=== PATIENT | female | born 1970 | race Caucasian/White ===

== ENCOUNTER 2022-04-08 07:21 | Outpatient (RCR) | payer BC, SELFPAY | END 2022-06-02 16:00 | disposition home or self-care (01) | PROVIDERS: Visit Provider Physician Assistant Medical | DX: M72.2 Plantar fascial fibromatosis (principal); Z51.89 Encounter for other specified aftercare | CPT/HCPCS: 97161; 97760; 97763 ==

== ENCOUNTER 2023-02-25 08:01 | Outpatient (CLI) | payer BC, SELFPAY | END 2023-02-25 08:02 | disposition home or self-care (01) | LOC: NFLDREF 02-26 06:30 | PROVIDERS: PCP Physician Assistant Medical; Referring Provider Physician Assistant Medical; Visit Provider Physician Assistant Medical | DX: I10 Essential (primary) hypertension (principal) | CPT/HCPCS: 80048 ==

== ENCOUNTER 2023-04-16 07:01 | Outpatient (CLI) | payer BC, SELFPAY ==
--- NOTE | 2023-04-16 07:15 | CRLHL7_ITS ---
For Patients: As a result of the Century Cures Act, medical imaging exams and procedure reports are released immediately into your electronic medical record. You may view this report before your referring provider. If you have questions, please contact your health care provider. INDICATION: Follow-up fibroids COMPARISON: 12/18/2022 TECHNIQUE: 2D patterson scale and color Doppler images were acquired of the pelvis using a transabdominal approach. FINDINGS: Uterus is enlarged with a lobular contour. Uterus measures 18.2 cm in length by 7.2 cm in AP diameter by 10.8 cm in transverse dimension. The myometrium has a heterogeneous echotexture. The endometrial lining measures 7 mm in composite thickness. The ovaries are not visualized. There are no suspicious fluid collections within the cul-de-sac. Fundal fibroid again noted measuring 6.8 x 4.5 x 5.9 cm, previously measuring 6.9 x 5.4 x 6.1 cm. Right-sided uterine fibroid measures 6.0 x 4.7 x 6.5 cm, previously measuring 6.0 x 5.8 x 6.5 cm. Left-sided uterine fibroid measures 8.7 x 5.5 x 7.5 cm, previously measuring 8.5 x 8.0 x 10.1 cm. IMPRESSION: Multiple uterine fibroids, similar to the prior study. Dictated by Viraj Crowe MD @ 04/16/2023 3:59:31 PM (Electronically Signed)
== END 2023-04-16 07:02 | disposition home or self-care (01) ==
LOC: US 07:02
PROVIDERS: PCP Physician Assistant Medical; Visit Provider Obstetrics & Gynecology
DX: D25.9 Leiomyoma of uterus, unspecified (principal)
CPT/HCPCS: 76856

== ENCOUNTER 2023-11-17 07:04 | Outpatient (CLI) | payer BC, SELFPAY ==
--- OUTSIDE RECORDS SUMMARY | 2023-11-17 07:06 | XMS_ITS | Clinical Summary ---
Author Name Unknown Organization [facility] Address [place], [place] [address] Care Team Providers Care Space Officer Name Role Phone Jessie Vela PA-C Primary Care Provider + [phone] Encounters Date Type Department Care Team Description 08/26/2023 Lab Requisition [facility] [phone] Moe Campbell MD from Last 3 Months Social History Tobacco Use Types Packs/Day Years Used Date Smoking Tobacco: Never Assessed Sex and Gender Information Value Date Recorded Sex Assigned at Not on file Gender Identity Not on file Sexual Orientation Not on file Plan of Treatment Health Maintenance Due Date Last Done Comments Tdap 1983 Depression screening for age 12+ 1984 HIV for age 15-65 1987 BMI (ht and wt on same day) for age 18+ 1990 Hepatitis C screening for age 18-79 1990 Tetanus booster 1992 Colonoscopy through age 75 2017 Lipids for age 45-75 2017 Mammogram for age 45-75 2017 Zoster (shingles) series for age 50+ (1 of 2) 2022 COVID-19 vaccine series (2022- season) 2023 11/02/2020, 10/12/2020 Pap test for age 21-65 11/07/2023 , 11/06/2020, 08/18/2017, Additional history exists Influenza for age 50-64 03/19/2024 Pneumococcal series for age 6-64 Aged Out No longer eligible based on patient's age to complete this topic Procedures Procedure Name Priority Date/Time Associated Diagnosis Comments LAB TRACKING EVENT Routine 08/26/2023 9: 45 AM TRUMPET PLAYER PATH TISSUE EXAM Routine 08/26/2023 9:45 AM TRUMPET PLAYER PROCESS IMPROVEMENT SPECIALIST THIN PREP PAP SCREEN IMAGED Routine 11/06/2020 9:00 AM CDT from Last 3 Months or Most Recently Relevant to Health Maintenance Results * LAB TRACKING EVENT (08/26/2023 9:45 AM TRUMPET PLAYER) Other (Other) Client Collect / Unknown 08/26/2023 9:45 AM TRUMPET PLAYER 08/26/2023 3:21 PM TRUMPET PLAYER Moe Campbell MD LAB BILL ONLY [facility] [address] * PATH TISSUE EXAM (08/26/2023 9:45 AM TRUMPET PLAYER) Case Report Pathology Report ?Case: [id number] ? Authorizing Provider: ??Moe Campebll MD ?? Collected: ? 08/26/2023 0945 ? Ordering Location: ? [facility] ?Received: ?08/26/2023 1646 ? Pathologist: ? Esther Guy MD ? Specimen: ?Back ? 08/30/2023 5:01 PM [facility] [employer] [facility] Final Diagnosis A) SKIN, LOWER BACK, BIOPSY: 1. Lentiginous compound nevus with moderate cytologic atypia ?? a. Margin status: Negative, but less than 1 mm in the plane of section examined 2. Negative for malignancy 08/30/2023 5:01 PM [facility] Comment A) Incomplete sampling of melanocytic proliferations may impair accurate diagnosis. Clinical correlation with the overall size of the lesion, and presence of remaining or recurring pigment, is required for optimal treatment. 08/30/2023 5:01 PM [facility] [employer] [facility] Clinical Information Atypical nevus 08/30/2023 5:[address] [facility] Gross Description A) Received in formalin, labeled with the patient's name and lower back, is a 0.7 x 0.4 x 0.1 cm skin biopsy. There is a 0.2 x 0.2 cm flat brown-black ??lesion. The specimen is inked yellow, trisected and entirely submitted in one cassette. EKW 08/26/2023 08/30/2023 5:[address] [facility] Microscopic Description The final diagnosis is based on microscopic examination of appropriate sections of all specimens. Additional deeper level sections are examined. 08/30/2023 5:01 PM [facility] Additional Information Interpreted at [facility] Central Laboratory - [address] [facility] [address] [address] 08/30/2023 5:01 PM [facility] Other (Back) 08/26/2023 9:45 AM TRUMPET PLAYER 08/26/2023 4:46 PM TRUMPET PLAYER Moe Campbell MD PATHOLOGY/CYTOLOG Y [facility] [address] [place] [address], * PROCESS IMPROVEMENT SPECIALIST THIN PREP PAP SCREEN IMAGED (11/06/2020 9:00 AM CDT) Case Report Gynecologic Cytology Report ? Case: [id number] ? Authorizing Provider: ??Jessie Vela PA-C ?Collected: ? 11/06/2020 0900 ? Ordering Location: ? [facility] ?Received: ?11/07/2020 1507 ? First Screen: ?Zahira Rivas ? Specimen: ?PROCESS IMPROVEMENT SPECIALIST ThinPrep Vial Screening, Cervical/Vaginal ? 11/14/2020 12:00 PM CDT [employer] [facility]-C ENTRAL LABORATORY INTERPRETATION/ RESULT NEGATIVE FOR INTRAEPITHELIAL LESION OR MALIGNANCY (NIL) (none) 11/14/2020 12:00 PM CDT [facility] [employer] LAB[facility]AT[facility] ENTRAL LABORATORY IMEN ADEQUACY Satisfactory for evaluation No endocervical component seen 11/14/2020 12:00 PM CDT [facility] HPV REQUEST HPV and PAP 11/14/2020 12:00 PM CDT [facility] Date of LMP 10/19/2020 11/14/2020 12:00 PM CDT [facility] Last Pap Date 08/18/2017 11/14/2020 12:00 PM CDT [facility] Last Pap Result NIL 12:00 PM CDT [facility] Additional Information 11/14/2020 12:00 PM CDT [facility] Comment: Interpreted at [facility] - [address], [place] [address] Automated Review Successful 11/14/2020 12:00 PM T [facility] Comment:Specimen processed s uccessfully by automated applications tester device, ThinPrep Imaging System, [employer] ANCILLARY TESTING PROCESS IMPROVEMENT SPECIALIST HPV Ordered, Please see separate report 11/14/2020 12:00 PM T [facility] Note The pap test is a screening technique, not a diagnostic procedure. It is used primarily to screen for squamous cancers and precursor lesions. Published studies have shown that it is subject to both false negative and false positive results. The pap test should not be used as the sole means to diagnose or exclude pre-malignant and malignant lesions. 11/14/2020 12:00 PM CDT [facility] Other (Cervical/Vagina l) 11/06/2020 9:00 AM CDT 11/07/2020 3:07 PM CDT Jessie Vela PA-C PATHOLOGY/CYTOLOGY [facility] [address] [place] [address], [place] from Last 3 Months or Most Recently Relevant to Health Maintenance Care Teams Space Officer Relationship Specialty Start Date End Date Jessie Vela PA-C [address] [place] [address] PCP - General Emergency Medicine 01/18/23
--- OUTSIDE RECORDS SUMMARY | 2023-11-17 07:06 | XMS_ITS | Data Portability ---
Author Name Unknown Address [address] [place] [address] Phone [phone] Organization [facility] D[facility], Main Office Address [address] [place] [address] Assessment Encounter Date Assessment Date Assessment LastModified by Organization Details LastModified Time 12/26/2018 12/26/2018 1. Basal carcino ma biopsy-proven tip of nose just to the right of midline. We discussed risks benefits of surgery. This is a difficult area to reconstruct and often requires revision or resurfacing. We discussed the difficulty of doing an elliptical linear closure due to being at the apex of the convexity the tip of the nose. Grafts can be performed. Flaps can be performed. We discussed pain, discomfort, chance of scarring, infections. Mohs case M 19? 040 Stage I: Area cleansed with Betadine, then alcohol. Anesthetized 1% lidocaine with epinephrine. Less than 6 cc total today. Marcaine 0.25 cc was used in between layers. Curette debulking gently. Half a millimeter margins were taken to the mid dermis on stage I revealing an interesting inflammatory involvement of 4 to 5 and 6:00 deep in the dermis. Stage II: Deeper layer throughout the dermis was taken circumferentially within the defect without epidermis revealing the same inflammatory response with some isolated basaloid cells. Stage III. Similar deep area was taken down to the subcutis on the skin on the tip of the nose revealing no inflammation or isolated unusual cells. Final defect 0.6 x 0.7 cm. Total stages 3. Total sections 3. We chose to perform an island pedicle advancement flap inferior base. We diagrammed this out preoperatively and discussed that at this point. An island was released laterally inferior to the defect advanced forward with a solid underlying vascular supply closed with 5-0 Vicryl and 5-0 nylon. Final defect size 0.6 x 0.6 cm plus a secondary defect. The primary and secondary defect combined were approximately 1 cm??. Pressure dressing applied, wound care instructions given. Cell phone number available. Follow-up in 1 week in [place] with mt in 2 to 3 weeks Not available 12/31/2018 11:24:15 Plan of Treatment Reminders Order Date Submit Date Provider Last Modified By Organization Details Last Modified Time Details Appointments None record ed. Lab None record ed. Referral None record ed. Procedures None record ed. Surgeries None record ed. Imaging None record ed. Medication Orders None record ed. Patient TargetsNo targets recorded. Patient InstructionsNo instructions recorded. Reason for Referral None Reported. Problems Name Status Onset Date Resolution Date Notes Provider Name and Address Organization Details Recorded Time [facility]al [facility] 09:58:52 Essential hypertension [facility] 12/26/2018 09:59:32 Problem Notes None recorded. Procedures Surgical History Date Name Laterality Status Provider Name and Address Organization Details Recorded Time Removal of ovarian cyst(s) completed [facility] 12/26/2018 10:03:33 Imaging Results None recorded. Procedure Notes None recorded. Medical Equipment None Reported. Allergies No known drug allergies Medications Name Sig Start Date Stop Date Status Note LastModified by Organization Details LastModified Time Keflex 500 mg capsule Take 1 capsule twice a day by oral route. 2018 active Not Available Not Available Not Avai lable metronidazo le 0.75 % lotion 12/26 completed Not Available Not Available Not Available mupirocin 2 % topical ointment APPLY A SMALL AMOUNT TO THE AFFECTED AREA BY TOPICAL ROUTE 3 TIMES PER DAY x 2 weeks 2018 active Not Available Not Available Not Avai lable ketoconazol e 2 % topical cream 12/26 completed Not Available Not Available Not Available Fish Oil active Not Available Not Avai lable Not Available hydrochloro thiazide 12.5 mg tablet active Not Available Not Available Not Available Vitals None Recorded Social History Question Answer Notes LastModified by Organizat ion Details LastModified Time Tobacco Smoking Status Never Smoker Not Available [facility] 05/21/2020 03:34:37 What Is Your Level Of Alcohol Consumption? Occasional [id number] Information not available 05/21/2020 Animal Exposure? Yes Dog, Cat Informat ion not available 12/26/2018 What Was The Date Of Your Most Recent Tobacco Screening? 12/26/2018 [id number] Information not available 05/21/2020 What Is Your Relationship Status? [id number] Information not available 05/21/2020 Sun Exposure Moderate Information not available 12/26/2018 Do You Use Sunscreen Routinely? Yes [id number] Information not available 05/21/2020 Tanning Bed Exposure Yes Information not available 12/26/2018 Sex: Female Functional Status None recorded. Mental Status None recorded. Family History Relationship Description Onset Age of this Age Resolved Age Notes Father Jygjy-Jylkajcas-Djdj e pattern Mother Myocardial infarction Medical History Condition Response Diabetes N Bleeding Disorder N Squamous Cell Carcinoma N Arthritis N Blood Clot N Tuberculosis N AIDS/HIV N Cancer N Melanoma N Stroke N Thyroid Problems N Asthma N Pacemaker N Anemia N Basal Cell Carcinoma Y Skin Cancer Y Hepatitis N Liver Disease N Heart Disease N Pulmonary Embolism N Hypertension Y Seasonal Allergies N Kidney Disease N Gynecological HistoryNo gynecological history recorded. 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 [id number] Health Concerns Section Related Observation LastModified by Organization Detai ls LastModified Time None Recorded Concern Status LastModified by Organization Details LastModified Time None Recorded Advance Directives Directive None Recorded Payers Encounter Date Sequence Insurance Name Policy Number Policy Horner Covered Member ID Horner Member ID Guarantor Name 12/26/2018 1 [place] [employer] Pro Valverde [id number] Chey Valverde Notes Date Note Type Note Provider Name and Address Organization Details Recorded Time 12/26/2018 text/html HPI Notes: 48-year-old female presents today for Mohs surgery of basal carcinoma just right of the midline of the tip of the nose see preoperative photographs. She is accompanied by her . She understands the risks including pain discomfort downtime scarring chance of infection. She is known to me from the [facility] Moe Campbell MD [address] [address], [place], [address], [facility] 12/31/2018 11:24:23 OBGyn Episode No OBEpisode recorded.
--- NOTE | 2023-11-17 07:15 | US_ITS ---
Patient: CAMILLA BARTON Facility:?[facility] Patient ID:?[id number] Site Patient ID:?[id number]. Site :?1970 Study:?US-OB Pelvis TA/TV Pelvic US-11/17/2023 8:13:37 AM Ordering Physician:Cielo Guzman Final Report: INDICATION: Leiomyoma COMPARISON: 04/16/2023 TECHNIQUE: 2D patterson scale and color Doppler images were acquired of the pelvis using a transabdominal and transvaginal approach. FINDINGS: Partially exophytic fundal fibroid is present measuring 5.7 x 4.8 x 5.2 cm, previously measuring 6.8 x 4.5 x 5.9 cm. Left partially exophytic fibroid also noted measuring 7.5 x 5.3 x 6.7 cm, previously measuring 8.7 x 5.5 x 7.5 cm. Right-sided fibroid measures 5.4 x 4.2 x 5.5 cm, previously measuring 6.0 x 4.7 x 6.5 cm. Uterus measures 10.6 cm in length by 7.2 cm in AP diameter by 9.5 cm in transverse dimension. The myometrium has a normal uniform echotexture. The endometrial lining appears normal and measures 9 mm in composite thickness. The right ovary measures 2.4 x 1.3 x 1.2 cm in size and the left ovary measures 2.2 x 1.4 x 1.9 cm. The ovaries demonstrate normal arterial and venous blood flow on color Doppler analysis. There are no suspicious fluid collections within the cul-de-sac. IMPRESSION: Multiple uterine fibroids measuring up to 7.5 cm, similar to the prior study. Dictated by Viraj Crowe MD @ 11/17/2023 12:39:55 PM Signed by:?Viraj Crowe MD @11/17/2023 12:39:55 PM (Electronic Signature)
== END 2023-11-17 07:05 | disposition home or self-care (01) ==
PROVIDERS: PCP Physician Assistant Medical; Visit Provider Obstetrics & Gynecology
DX: D25.9 Leiomyoma of uterus, unspecified (principal)
CPT/HCPCS: 76830; 76856

== ENCOUNTER 2023-12-06 12:44 | Outpatient (CLI) | payer BC, SELFPAY ==
--- OUTSIDE RECORDS SUMMARY | 2023-12-06 12:48 | XMS_ITS | Data Portability ---
Author Name Unknown Address [address] [place] [address] Phone [phone] Organization [facility] Derm [facility]ology, Main Office Address [address] [place] [address] Assessment Encounter Date Assessment Date Assessment LastModified [...] number available. Follow-up in 1 week in [place] with [place] in 2 to 3 weeks Not available [...] cell carcinoma [facility] 09:58:52 Essential hypertension [facility] 12/26/2018 09:59:32 Problem Notes None recorded. Procedures Surgical History Date Name Laterality Status Provider Name and Address Organization Details Recorded Time Removal of ovarian cyst(s) completed [facility] 12/26/2018 10:03:33 Imaging Results None recorded. Procedure [...] Is Your Level Of Alcohol Consumption? Occasional [id number] Information not available 05/21/2020 Animal Exposure? Yes Dog, Cat Informat ion not available 12/26/2018 What Was The Date Of Your Most Recent Tobacco Screening? 12/26/2018 [id number] Information not available 05/21/2020 What Is Your Relationship Status? [id number] Information not available 05/21/2020 Sun Exposure Moderate Information not available 12/26/2018 Do You Use Sunscreen Routinely? Yes [id number] Information not available 05/21/2020 Tanning Bed Exposure Yes Information not available 12/26/2018 Sex: Female Functional Status None recorded. Mental Status None recorded. Family History Relationship Description Onset Age of this Age Resolved Age Notes Father Vdymq-Iwwbkzsbp-Lujb e pattern Mother Myocardial infarction Medical History [...] 1908 Moe Campbell MD Main Office [address],[place] [address] 12/26/2018 09:49:30 12/31/2018 11:24:35 Basal cell carcinoma of tip of nose [id number] Health Concerns Section Related Observation LastModified by Organization Detai ls LastModified Time None Recorded Concern Status LastModified by Organization Details LastModified Time None Recorded Advance Directives Directive None Recorded Payers Encounter Date Sequence Insurance Name Policy Number Policy Horner Covered Member ID Horner Member ID Guarantor Name 12/26/2018 1 [place] Pro Valverde [id number] Chey Valverde Notes Date Note Type Note [...] She is known to me from the [facility] Moe Campbell MD [address],[facility] [address], [place], [address], [facility] 12/31/2018 11:24:23 OBGyn Episode No OBEpisode recorded.
--- OUTSIDE RECORDS SUMMARY | 2023-12-06 12:48 | XMS_ITS | Clinical Summary ---
Author Name Unknown Organization [facility] Address [place], [place] [address] Care Team Providers Care Driver Operator Name Role Phone Jessie Vela PA-C Primary Care Provider + [phone] Social History Tobacco Use Types Packs/Day Years [...] Procedure Name Priority Date/Time Associated Diagnosis Comments SUPERVISOR WINTER THIN PREP PAP SCREEN IMAGED Routine 11/06/2020 9:00 AM CDT from Last 3 Months or Most Recently Relevant to Health Maintenance Results * SUPERVISOR WINTER THIN PREP PAP SCREEN IMAGED (11/06/2020 9:00 AM CDT) Case Report Gynecologic Cytology Report ? Case: [id number] ? Authorizing Provider: ??Jessie Vela PA-C ?Collected: ? 11/06/2020 0900 ? Ordering Location: ? [facility] ?Received: ?11/07/2020 1507 ? First Screen: ?Zahira Rivas ? Specimen: ?SUPERVISOR WINTER ThinPrep Vial Screening, Cervical/Vaginal ? 11/14/2020 12:00 PM CDT [facility] INTERPRETATION/ RESULT NEGATIVE FOR INTRAEPITHELIAL LESION OR MALIGNANCY (NIL) (none) 11/14/2020 12:00 PM CDT [facility] IMEN ADEQUACY Satisfactory for evaluation No endocervical component seen 11/14/2020 12:00 PM CDT [facility] HPV REQUEST HPV and PAP 11/14/2020 12:00 PM CDT [facility] Date of LMP 10/19/2020 11/14/2020 12:00 PM CDT [facility] Last Pap Date 08/18/2017 11/14/2020 12:00 PM CDT [facility] Last Pap Result NIL 12:00 PM CDT [facility] Additional Information 11/14/2020 12:00 PM T [facility] Comment: Interpreted at [facility] - [address], [place] [address] Automated Review Successful 11/14/2020 12:00 PM T [facility] Comment:Specimen processed s uccessfully by automated caddy/caddie supervisor device, TruLeafPrep Imaging System, [employer] ANCILLARY TESTING SUPERVISOR WINTER HPV Ordered, Please see separate report 11/14/2020 12:00 PM T [facility] Note The pap test is a screening technique, not a diagnostic procedure. It is used primarily to screen for squamous cancers and precursor lesions. Published studies have shown that it is subject to both false negative and false positive results. The pap test should not be used as the sole means to diagnose or exclude pre-malignant and malignant lesions. 11/14/2020 12:00 PM T [facility] Other (Cervical/Vagina l) 11/06/2020 9:00 AM CDT 11/07/2020 3:07 PM CDT Jessie Vela PA-C PATHOLOGY/CYTOLOGY [facility] [address] [place] [address], [place] from Last 3 Months or Most Recently Relevant to Health Maintenance Care Teams Driver Operator Relationship Specialty Start Date End Date Jessie Vela PA-C [address] [place] [address] PCP - General Emergency Medicine 01/18/23
--- NOTE | 2023-12-06 13:20 | MM_ITS ---
Patient: CAMILLA BARTON Facility:?[facility] Patient ID:?[id number] Site Patient ID:?[id number]. Site :?1970 Study:?XRay-Breast Bilateral 3D W/CAD-12/06/2023 1:20:34 PM Ordering Physician:Christine Final Report: BILATERAL SCREENING MAMMOGRAM WITH COMPUTER-AIDED DETECTION AND TOMOSYNTHESIS TECHNIQUE: CC and MLO views were obtained. These mammographic images have been obtained using full-field digital technique. These mammographic images were interpreted with the benefit of computer-aided detection. Breast Tomosynthesis was used in this interpretation. COMPARISON FILM: 12/02/22, 11/06/21, 09/18/20. FINDINGS: There are scattered areas of fibroglandular density IMPRESSION: There is no radiographic evidence for malignancy. ASSESSMENT: BI-RADS Category 2: Benign RECOMMENDATION: Routine screening mammogram in 1 year. A lay language report of this examination will be provided to the patient. Viraj Crowe M.D. Diagnostic Radiologist [email or web address] Transcribed: 2:12 p.mSarah ebal/Dictated by: Viraj Crowe MD @ 12/07/2023 1:36:00 PM Signed by:?Viraj Crowe MD @12/07/2023 2:17:58 PM (Electronic Signature)
== END 2023-12-06 12:45 | disposition home or self-care (01) ==
LOC: MAMMO 12:44
PROVIDERS: PCP Physician Assistant Medical; Visit Provider Physician Assistant Medical
DX: Z12.31 Encounter for screening mammogram for malignant neoplasm of breast (principal)
CPT/HCPCS: 77063; 77067

== ENCOUNTER 2024-02-03 09:07 | Outpatient (CLI) | payer BC, SELFPAY ==
--- OUTSIDE RECORDS SUMMARY | 2024-02-03 09:10 | XMS_ITS | Clinical Summary ---
Author Organization [facility] Address [place], [place] [address] Care Team Providers Care Centralized Traffic Control Operator Name Role Phone Jessie Vela PA-C Primary Care Provider + [phone] Social History Tobacco Use Types Packs/Day Years [...] (1 of 2) 2022 COVID-19 vaccine series ( season) 2023 11/02/2020, 10/12/2020 Pap test for age 21-65 11/07/2023 , 11/06/2020, 08/18/2017, Additional history exists Influenza for age 50-64 03/19/2024 Pneumococcal series for age 6-64 Aged Out No longer eligible based on patient's age to complete this topic Procedures Procedure Name Priority Date/Time Associated Diagnosis Comments CARD SERVICES SPECIALIST THIN PREP PAP SCREEN IMAGED Routine 11/06/2020 9:00 AM CDT from Last 3 Months or Most Recently Relevant to Health Maintenance Results * CARD SERVICES SPECIALIST THIN PREP PAP SCREEN IMAGED (11/06/2020 9:00 AM CDT) Case Report Gynecologic Cytology Report ? Case: [id number] ? Authorizing Provider: ??Jessie Vela PA-C ?Collected: ? 11/06/2020 0900 ? Ordering Location: ? [facility] ?Received: ?11/07/2020 1507 ? First Screen: ?Zahira Rivas ? Specimen: ?CARD SERVICES SPECIALIST ThinPrep Vial Screening, Cervical/Vaginal ? 11/14/2020 12:00 PM CDT [facility] INTERPRETATION/ RESULT NEGATIVE FOR INTRAEPITHELIAL LESION OR MALIGNANCY (NIL) (none) 11/14/2020 12:00 PM CDT [facility] IMEN ADEQUACY Satisfactory for evaluation No endocervical component seen 11/14/2020 12:00 PM CDT [facility] HPV REQUEST HPV and PAP 11/14/2020 12:00 PM CDT [facility] Date of LMP 10/19/2020 11/14/2020 12:00 PM [facility] Last Pap Date 08/18/2017 11/14/2020 12:00 PM T [facility] Last Pap Result NIL 12:00 PM T [facility] Additional Information 11/14/2020 12:00 PM T [facility] Comment: Interpreted at [facility] - [address], [place] [address] Automated Review Successful 11/14/2020 12:00 PM [facility] Comment:Specimen processed s uccessfully by automated fiberglass fabricator device, [employer] System, [employer] ANCILLARY TESTING CARD SERVICES SPECIALIST HPV Ordered, Please see separate report 11/14/2020 12:00 PM T [facility] Note The pap test is a [...] and malignant lesions. 11/14/2020 12:00 PM T [facility] Other (Cervical/Vagina l) 11/06/2020 9:00 AM CDT 11/07/2020 3:07 PM CDT Jessie Vela PA-C PATHOLOGY/CYTOLOGY [facility] [address] [place] [address], [place] from Last 3 Months or Most Recently Relevant to Health Maintenance Care Teams Centralized Traffic Control Operator Relationship Specialty Start Date End Date Jessie Vela PA-C [address] [place] [address] PCP - General Emergency Medicine 01/18/23
[2024-02-03 15:20] LABS: Chlamydia DNA Amplified* NOT DETECTED (No Detected); GC DNA Amplified* NOT DETECTED (No Detected)
== END 2024-02-03 09:08 | disposition home or self-care (01) ==
PROVIDERS: PCP Physician Assistant Medical; Visit Provider Physician Assistant Medical
DX: I10 Essential (primary) hypertension (principal); Z11.3 Encounter for screening for infections with a predominantly sexual mode of transmission; Z13.220 Encounter for screening for lipoid disorders
CPT/HCPCS: 80053; 80061; 86703; 86803; 87491; 87591

== ENCOUNTER 2025-01-09 09:47 | Outpatient (CLI) | payer OTHER, SELFPAY ==
--- NOTE | 2025-01-09 10:15 | CRLHL7_ITS ---
For Patients: As a result of the Cures Act, medical imaging exams and procedure reports are released immediately into your electronic medical record. You may view this report before your referring provider. If you have questions, please contact your health care provider. COMPARISON: 12/06/2023, 12/02/2022, 11/06/2021 TECHNIQUE: Digital mammogram in CC and MLO projections including computer-aided detection (CAD) and tomosynthesis. BREAST COMPOSITION: There are scattered areas of fibroglandular density. FINDINGS: No suspicious findings. ASSESSMENT: BI-RADS 2 Benign RECOMMENDATION: Annual screening mammogram. A lay language report of this examination will be provided to the patient. Dictated by: Viraj Crowe MD @ 01/09/2025 12:37:41 (Electronically Signed)
--- OUTSIDE RECORDS SUMMARY | 2025-01-10 00:50 | XMS_ITS | Clinical Summary ---
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 Gender Identity Not on file Sexual Orientation Not on file Plan of Treatment Health Maintenance Due Date Last Done Comments Tdap 1983 Depression screening for age 12+ 1984 HIV for age 15-65 1987 BMI (ht and wt on same day) for age 18+ 1990 Hepatitis C screening for ag e 18-79 1990 Hepatitis B series for 19+ ( 1 of 3 - 19+ 3-dose series) 1991 Tetanus booster 1992 Colonoscopy through age 75 2017 Lipids for age 45-75 2017 Mammogram for age 45-75 2017 Pneumococcal series for age 50+ (1 of 1 - PCV) 2022 Zoster (shingles) series for age 50+ (1 of 2) 2022 COVID-19 vaccine series (3 - 2023- season) 2024 11/02/2020, 10/12/2020 Influenza Vaccine (Season Ended) 2025 Pap test for age 21-65 02/02/2027 , 02/03/2024, 11/06/2020, Additional history exists Procedures Procedure Name Priority Date/Time Associated Diagnosis Comments HPV HIGH RISK Routine 02/03/2024 9:15 AM CDT from Last 3 Months or Most Recently Relevant to Health Maintenance Results * HPV HIGH RISK (02/03/2024 9:15 AM CDT) TYPE 16 Negative Negative 02/09/2024 12:29 PM CDT [facility] TYPE 18 Negative Negative 02/09/2024 12:29 PM CDT [facility] OTHER HIGH RISK TYPES Negative Negative 02/09/2024 12:29 PM CDT [facility] Other (Cervical/Vagina l) 02/03/2024 9:15 AM CDT 02/07/2024 11:45 AM CDT Narrative [facility] - 02/09/2024 12:29 PM CDT HPV types 16, 18, 31, 33, 35, 39, 45, 51, 52, 56, 58, 59, 66 and 68 DNA were undetectable or below the pre-set threshold. 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
--- OUTSIDE RECORDS SUMMARY | 2025-01-10 00:50 | XMS_ITS | Data Portability ---
Author Organization [place] [facility], Main Office Address [address] [place] [address] [place] [address] Assessment Encounter Date Assessment Date Assessment LastModified [...] chance of scarring, infections. Mohs case M 19 040 Stage I: Area cleansed with Betadine, [...] and secondary defect combined were approximately 1 cm . Pressure dressing applied, wound care instructions given. Cell phone number available. Follow-up in 1 week in [place] with [place] in 2 to 3 weeks Not available [...] Reason for Referral None Reported. Problems Name Problem SNOMED Code Status Onset Date Resolution Date Notes Provider Name and Address Organization Details Recorded Time Basal cell carcinoma of skin 109128815 Active 2018 rosina johnson [facility] 9 09:58:52 Essential hypertension [id number] Active 2018 rosina johnson [facility] 9 09:59:32 Problem Notes None recorded. Procedures Surgical History Date Name Laterality Status Provider Name and Address Organization Details Recorded Time Removal of ovarian cyst(s) completed rosina gannon [facility] 12/26/2018 10:03:33 Imaging Results None recorded. Procedure [...] Tobacco Smoking Status Never [facility]oker Not [facility] 05/21/2020 03:34:37 Animal Exposure? Yes Dog, Cat Informat ion not available 12/26/2018 What Was The Date Of Your Most Recent Tobacco Screening? 12/26/2018 [id number] Information not available 05/21/2020 What Is Your Relationship Status? [id number] Information not available 05/21/2020 Sun Exposure Moderate Information not available 12/26/2018 Do You Use Sunscreen Routinely? Yes [id number] Information not available 05/21/2020 Tanning Bed Exposure Yes Information not available 12/26/2018 Sex: Unknown Functional Status Question Answer Note LastModified by Organizat ion Details LastModified Time What is your level of alcohol consumption? Occasional [id number] Information not available 05/21/2020 Mental Status None recorded. Family History Relationship Description Onset Age of this Age Resolved Age Notes LastModified by Organization Details LastModified Time Father Yary[place] son-White pattern Not available 2018 10:00:26 Mother Myocardial infarction Not available 12/26 10:00:53 Medical History Condition Response Diabetes N Bleeding [...] Encounter Closed Date Diagnosis/Indication Diagnosis SNOMED-CT Code Diagnosis ICD10 Code Diagnosis Note 1909 Moe Campbell MD Main Office [address] [place] [address] S,[facility] [place] [address] 12/26/2018 09:49:30 12/31/2018 11:24:35 Basal cell carcinoma of tip of nose 890116455 C44.311 Health Concerns Section Related Observation LastModified by Organization Detai ls LastModified Time None Recorded Concern Status LastModified by Organization Details LastModified Time None Recorded Advance Directives Directive None Recorded Payers Insurance Date Sequence Insurance Name Policy Number Policy Horner Covered Member ID Horner Member ID Guarantor Name 12/26/2018 1 [place] [employer] Valverde [id number] Chey Valverde Notes Date Note Type Note Provider Name and Address Organization Details Recorded Time 12/26/2018 text/html 48-year-old femnaila haile presents today for Mohs surgery of basal carcinoma just right of the midline of the tip of the nose see preoperative photographs. She is accompanied by her . She understands the risks including pain discomfort downtime scarring chance of infection. She is known to me from the [facility] Moe Campbell MD [address] [place] [address] [address], [place], [address], [facility] 12/31/2018 11:24:23 OBGyn Episode No OBEpisode recorded.
== END 2025-01-09 09:48 | disposition home or self-care (01) ==
LOC: MAMMO 09:47
PROVIDERS: PCP Physician Assistant Medical; Visit Provider Physician Assistant Medical
DX: Z12.31 Encounter for screening mammogram for malignant neoplasm of breast (principal)
CPT/HCPCS: 77063; 77067

== ENCOUNTER 2025-01-10 08:04 | Outpatient (CLI) | payer OTHER, SELFPAY | END 2025-01-10 08:05 | disposition home or self-care (01) | PROVIDERS: PCP Physician Assistant Medical; Visit Provider Physician Assistant Medical | DX: Z00.00 Encounter for general adult medical examination without abnormal findings (principal); E78.5 Hyperlipidemia, unspecified; I10 Essential (primary) hypertension; E66.9 Obesity, unspecified; Z13.1 Encounter for screening for diabetes mellitus; Z13.0 Encounter for screening for diseases of the blood and blood-forming organs and certain disorders involving the immune mechanism; Z13.29 Encounter for screening for other suspected endocrine disorder | CPT/HCPCS: 80053; 80061; 84443 ==